=== PATIENT | male | born 1945 | race Caucasian/White ===

== ENCOUNTER 2017-11-28 05:00 | Emergency (ER) | payer MEDICARE, MEDICAID, SELFPAY ==
[2017-11-28 05:01] VITALS: BP 142/81; PULSE 71; RESP 16; TEMP 36.6; O2SAT 97; BMI 23.8
[2017-11-28] MEDS: 0.9% Normal Saline 1,000 ML 1000 ML IV (05:37)
[2017-11-28 05:44] LABS: Absolute Lymphocyte Count 1.22 X10^3/ul (0.83-4.51); Absolute Neutrophil Count 1.4 X10^3/uL (2.0-7.7); Basophil# 0.07 X10^3/uL; Basophil% 2.1 % (0-1); Eosinophil# 0.19 X10^3/uL; Eosinophils% 5.8 % (0-5); Hematocrit 39.9 % (40-54); Hemoglobin 13.3 g/dl (13.0-16.5); Lymphocyte # 1.22 X10^3/ul (4.0); Lymphocyte % 37.3 % (19-41); Mean Corp Hgb Conc 33.3 g/gl (32-36); Mean Corpuscular Hgb 32.4 pg (27.0-32.0); Mean Corpuscular Volume 97.1 fL (80-94); Mean Platelet Vol. 10.9 fl (6.2-12.0); Monocyte# 0.42 X10^3/uL; Monocyte% 12.8 % (0-10); Neutrophil # 1.36 X10^3/uL (2.7-7.7); Neutrophil % 41.7 % (47-70); Platelet Count 163 K/mm3 (150-450); RBC Distribution Width CV 13.8 % (11.6-14.6); RBC Distribution Width SD 47.6 fl (35.1-43.9); Red Blood Count 4.11 M/mm3 (4.6-6.2); White Blood Count 3.3 K/mm3 (4.4-11.0)
[2017-11-28 05:54] LABS: POSITIVE COUNT NO; POSITIVE DIFFERENTIAL NO; POSITIVE MORPHOLOGY NO
[2017-11-28 06:05] LABS: ALB/GLOB Ratio 1.2 RATIO (0.9-2.4); AST(SGOT) 29 U/L (15-37); Alanine Aminotransfer ALT/SGPT 19 U/L (16-61); Albumin, Serum 3.5 g/dL (3.2-5.0); Alkaline Phosphatase 95 U/L (45-117); Anion Gap 8 (5-15); BUN 11 mg/dL (7-18); BUN/Creat Ratio 9.2 RATIO (10-20); Calcium,Total 8.7 mg/dL (8.5-10.1); Chloride 107 mmol/L (98-107); EST Glomerular Filtration Rate 63 mL/min (>60); Est Glom Filt Rate - Afr Amer 77 mL/min (>60); Estimated Creatinine Clearance 56.46 ml/min; Glucose 94 mg/dL (74-106); Lipase 178 U/L (73-393); Potassium 4.1 mmol/L (3.5-5.1); Protein, Total 6.5 g/dL (6.4-8.2); Sodium Level 145 mmol/L (136-145)
--- NOTE | 2017-11-28 06:40 | ED.DCSUM_ITS ---
- ER Visit Summary Date of Service: 11/28/17 Chief Complaint: [] History of Present Illness: The patient is a 72 M [presents the emergency department with a couple episodes of bowel urgency and incontinence. Over the past week he has had 2 episodes where he has suddenly had to use the bathroom and could not make it and had loose watery stool. He could not sleep because he was worried about it. No abdominal pain no urinary symptoms no nausea or vomiting no appetite changes. History is limited by the patient's comprehension and stuttering speech] he denies black or bloody stool. Physical Examination: [] WN WD NAD PERRL EOMI MMM NECK supple and nontender, no masses RRR no murmur rub or gallop, no peripheral edema, symmetric radial pulses CTAB no respiratory distress ABDOMEN is soft and nontender, normal bowel sounds, no distension, no rebound or guarding SKIN is warm and dry no rashes Alert and Oriented x3, CN II-XII in tact, no motor or sensory deficits, gait normal No lymphadenopathy Test Results: [] Emergency Department Course and Treatment: [Patient was given fluids screening labs were obtained and show a mild leukopenia but no other acute process. At this time I do think is safe for discharge. He does not have a primary care doctor that he follows with. I did encourage him to get a primary care doctor. There is a [place] which may be a family preservation caseworker will attempt to contact to discuss discharge instructions with as well. Patient does live alone.] Treatment Plan: [] Disposition: [Discharge] Impression: [Bowel urgency and incontinence] This note was generated with [employer] dictation software. It may contain incorrect words, spelling, and punctuation that were not noted in review of the chart prior to signing ED Disposition - Plan for ED Patient: Chief Complaint: Diarrhea Referrals: Care Physician,No Primary [Primary Care Provider] -
--- NOTE | 2017-11-28 06:40 | ED.DEP ---
ED Disposition - Plan for ED Patient: Chief Complaint: Diarrhea Instructions: ED Diarrhea Viral Referrals: Dale Thomason DO [STAFF PHYSICIAN] - 3-5 Days
[2017-11-28 06:50] VITALS: BP 138/80; PULSE 70; RESP 16; O2SAT 97
== END 2017-11-28 07:01 | disposition home or self-care (01) ==
PROVIDERS: Emergency Provider Emergency Medicine
DX: R15.9 Full incontinence of feces (principal); R15.2 Fecal urgency; D72.819 Decreased white blood cell count, unspecified; Z85.828 Personal history of other malignant neoplasm of skin
CPT/HCPCS: 80053; 83690; 85025; 96360; 99285; J7030; A4216

== ENCOUNTER 2018-04-04 21:21 | Emergency (ER) | payer OTHER, MEDICARE, MEDICAID, SELFPAY ==
[2018-04-04 21:22] VITALS: BP 127/104; PULSE 82; RESP 18; TEMP 37.1; O2SAT 99; BMI 23.8
--- NOTE | 2018-04-04 21:42 | ED.VIS.GEN ---
History of Present Illness Chief Complaint: Lower Extremity Injury Informant: Patient Onset: Today Context: Sudden Onset - work-related injury; getting carts from parking lot, accidentally got hit in the right leg by one of the carts, which scraped him. Timing: Continuous Quality: scraped Location: right lower leg Current Severity: Mild Maximum Severity: Moderate Worsened by: walking Relieved by: rest Associated Symptoms: no other injury Narrative: States he can walk fine. Past Medical History - Allergies and Home Meds Allergies/Adverse Reactions: Allergies No Known Allergies Allergy (Verified 04/04/18 21:22) Primary Care Physician: ,Lisa [GROUP OF PHYSICIANS] - As Needed Care Physician,No Primary [Primary Care Provider] - Past Medical History: None Smoking Status: Never smoker Review of Systems All systems negative except as indicated Musculoskeletal: Reports: Extremity Pain Skin: Reports: Abrasions Neurological: Denies: Headache, Weakness, Parasthesia, Numbness Physical Exam Vital Signs/Narrative: Vital Signs Temp Pulse Resp BP Pulse Ox 04/04/18 21:22 98.8 F 82 18 127/104 H 99 Inital Vital Signs reviewed: Yes General: Well nourished, Well developed Head: Normocephalic, Atraumatic Extremities: No edema, Tenderness - mild at right kinney at abrasions. no deformity. FROM knee and ankle. Skin: Normal color, No rash, Trauma - 2 abrasions right kinney. no lacerations. Neurological: Alert, Oriented x3, Cranial nerves II-XII grossly intact, Normal Strength, Normal Sensation, Normal Gait Psychological: Normal affect Diagnostic/Tx/Re-eval - Medical Decision Making Reassured, wounds cleansed and dressed. His last tetanus was over 10 years ago so he was amenable to an update. No x-ray indicated since he scraped along his kinney, and is weightbearing without any difficulty and has no tenderness along the fibula. No joint involvement. Patient is okay to go back to work and he is okay with this plan. ED Disposition - Plan for ED Patient: Disposition: Home or Assisted Living Chief Complaint: Lower Extremity Injury Diagnosis: Abrasion, right lower leg, initial encounter, Immunization, tetanus-diphtheria Instructions: ED Abrasion Referrals: ,Care [GROUP OF PHYSICIANS] - As Needed Care Physician,No Primary [Primary Care Provider] -
[2018-04-04] MEDS: Diphth,Pertuss(Acell),Tet Vac 0.5 ML Vial IM (22:00)
--- NOTE | 2018-04-04 22:09 | ED.RN ---
per pt his boss does not want him to have a drug screen.
[2018-04-04 22:23] VITALS: BP 122/80; PULSE 78; RESP 16; O2SAT 98
--- OUTSIDE RECORDS SUMMARY | 2018-05-22 03:37 | XMS RPT_ITS ---
:1945 Author Organization OHIP Care Team Providers Name Role Phone HIMANSHU WILLIS III Attending Unavailable PEG MILLIGAN (PA-C) Attending Unavailable JEANINE LIU Referring Unavailable LIZ TRAVIS (INTELLECTUAL PROPERTY MANAGER) Attending Unavailable LORRI ROBERTS Referring Unavailable LORRI ROBERTS Referring Unavailable ALDO ELLINGTON Attending Unavailable ADY BARRETT (INTELLECTUAL PROPERTY MANAGER) Attending Unavailable GRACIA DEVRIES (RES) Attending Unavailable ADY BARRETT (INTELLECTUAL PROPERTY MANAGER) Attending Unavailable Primay Care Physicia, No Primary Care Unavailable ASHLEY MCDONALD Attending Unavailable Primay Care Physicia, No Primary Care Unavailable Brittany Ojeda Attending Unavailable PROBLEMS PROBLEMS DATE TYPE CONDITION / CODE ATTENDING STATUS SOURCE 08/02/2017 Active Unknown / PGE MILLIGAN Active [facility] UNK(Unknown) (PASaturninoC) Main [place] Repository PROCEDURES PROCEDURES No Procedure Records FoundRESULTS RESULTS EMERGENCY DEPARTMENT Observed: 04/04/2018 Status: F Source: [place] SUMMARY 11:39 PM [facility] REPOSITORY [facility] Medical Records Department [address] [place] [address] Emergency Department Summary 04/04/182 MR#: [id number] Acct: [id number] Name: JENNIFER LI Rep #: [id number] : 1945 72 From: Ashley Mcdonald MD PCP: Care Physician, No Primary Status: DEP ER History of Present Illness Chief Complaint: Lower Extremity Injury Informant: Patient Onset: Today Context: Sudden Onset - work-related injury; getting carts from parking lot, accidentally got hit in the right leg by one of the carts, which scraped him. Timing: Continuous Quality: scraped Location: right lower leg Current Severity: Mild Maximum Severity: Moderate Worsened by: walking Relieved by: rest Associated Symptoms: no other injury Narrative: States he can walk fine. Past Medical History - Allergies and Home Meds Allergies/Adverse Reactions: Allergies No Known Allergies Allergy (Verified 04/04/18 21:22) Primary Care Physician: Lisa Redding [GROUP OF PHYSICIANS] - As Needed Care Physician,No Primary [Primary Care Provider] - Past Medical History: None Smoking Status: Never smoker Review of Systems All systems negative except as indicated Musculoskeletal: Reports: Extremity Pain Skin: Reports: Abrasions Neurological: Denies: Headache, Weakness, Parasthesia, Numbness Physical Exam Vital Signs/Narrative: Vital Signs 04/04/18 21:22 98.8 F 82 18 127/104 H 99 Inital Vital Signs reviewed: Yes General: Well nourished, Well developed Head: Normocephalic, Atraumatic Extremities: No edema, Tenderness - mild at right kinney at abrasions. no deformity. FROM knee and ankle. Skin: Normal color, No rash, Trauma - 2 abrasions right kinney. no lacerations. Neurological: Alert, Oriented x3, Cranial nerves II-XII grossly intact, Normal Strength, Normal Sensation, Normal Gait Psychological: Normal affect Diagnostic/Tx/Re-eval - Medical Decision Making Reassured, wounds cleansed and dressed. His last tetanus was over 10 years ago so he was amenable to an update. No x-ray indicated since he scraped along his kinney, and is weightbearing without any difficulty and has no tenderness along the fibula. No joint involvement. Patient is okay to go back to work and he is okay with this plan. ED Disposition - Plan for ED Patient: Disposition: Home or Assisted Living Chief Complaint: Lower Extremity Injury Diagnosis: Abrasion, right lower leg, initial encounter, Immunization, tetanus-diphtheria Instructions: ED Abrasion Referrals: Corporate,Care [GROUP OF PHYSICIANS] - As Needed Care Physician,No Primary [Primary Care Provider] - What to do if you have Problems For any increased pain, shortness of breath, bleeding, nausea or vomiting, chest pain, or any unexpected problems, contact your Primary Care Provider. Call [facility] ([phone]) or report to the closest Emergency Room. Call 911 if necessary. 04/04/18 2339 <Electronically signed by Ashley Mcdonald MD> Date Ashley Mcdonald MD Cosigner Signature (If Indicated): Date CC: No Primary Care Physician PROGRESS Observed: 02/21/2018 Status: COMPLETED Source: [place] 9:37 AM [facility] REPOSITORY [facility] ID: [id number] Author: Ady Vogt (Experimental Physicist) Arnold Service: (none) Author Type: Nurse Practitioner Type: Progress Notes Filed: 02/21/2018 9:39 AM Note Text: HPI/CC: Jennifer Li is a 72 year old male who presents for Recheck (10 day follow up). Finished antibiotic. No new s/s, no pain. Denies fever, chills. ROS as above, otherwise non-contributory. Reviewed PMHx, PSHx, social Hx, medications and allergies. PHYSICAL EXAMINATION: BP 110/72 Pulse 68 Resp 16 Wt 73 kg (161 lb) BMI 24.48 kg/m? General appearance: Well appearing, alert, in no acute distress, well-hydrated, well nourished. Skin: Skin color, texture, turgor normal, no suspicious rashes or lesions Breast: Soft, nontender, No mass, skin lesions or nipple discharge, no axillary lymphadenopathy, no nipple discharge, symmetric without skin puckering ASSESSMENT/PLAN: 1. Breast pain - ICD9: 611.71, ICD10: N64.4 - monitor, negative assessment - RTO if changes Ady Barrett APRN.INTELLECTUAL PROPERTY MANAGER CNOV Observed: 02/21/2018 Status: COMPLETED Source: [place] 9:20 AM [facility] REPOSITORY Office Visit (FAMPWS) JENNIFER LI ([id number]) 1945 M Date Time Provider Department 02/21/18 9:20 AM ADY BARRETT ([place]) FAMPWS During your visit today, we recorded the following information about you: Pulse Respiration Blood pressure Weight 68/minute 16/minute 110/72 73 kg Ady Barrett APRN.CNP 02/21/2018 9:39 AM Signed HPI/CC: Jennifer Li is a 72 year old male who presents for Recheck (10 day follow up). Finished antibiotic. No new s/s, no pain. Denies fever, chills. ROS as above, otherwise non-contributory. Reviewed PMHx, PSHx, social Hx, medications and allergies. PHYSICAL EXAMINATION: BP 110/72 Pulse 68 Resp 16 Wt 73 kg (161 lb) BMI 24.48 kg/m? General appearance: Well appearing, alert, in no acute distress, well-hydrated, well nourished. Skin: Skin color, texture, turgor normal, no suspicious rashes or lesions Breast: Soft, nontender, No mass, skin lesions or nipple discharge, no axillary lymphadenopathy, no nipple discharge, symmetric without skin puckering ASSESSMENT/PLAN: 1. 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 Gastritis [K29.70] INVALID FOR* Malignant melanoma of skin of scalp and neck (H*INVALID FOR* Priority: A More... Melanoma of scalp (HCC) [C43.4] INVALID FOR* Malnutrition of moderate degree (HCC) [E44.0] INVALID FOR*07/27/2017 Encounter Status:Closed by ADY BARRETT CNP on 02/21/18 PROGRESS Observed: 02/16/2018 Status: COMPLETED Source: [place] 9:23 AM [facility] REPOSITORY O ID: [id number] Author: Aldo Ellington Service: (none) Author Type: Physician Type: Progress Notes Filed: 02/24/2018 10:38 AM Note Text: EST PATIENT CC: S/P Excision of Melanoma of scalp by Dr. Liu on 04/23/2017 HPI: Jennifer Li is a 72 year old male Patient complains of pain at night from excision site. Intermittent, stabbing lightning pains Has not lost sleep due to pain No growths or thickening near scar No pigment return in the area around scar Caregiver noticed right breast looked different than left a few days ago Previous exam did not reveal major asymmetry Tolerating antibiotics Past medical history: History of skin cancer or atypical nevi: Melanoma Family medical history: History of melanoma: none ROS: Denies fever, chills, night sweats, weight loss, joint pain. No rashes. No lymphadenopathy No weight loss No fevers PE: Gen: AANDOx3, well appearing Moyer skin type: II Skin exam performed including scalp, face including eyelids AND conjunctiva, neck, chest, abdomen, b/l arms, hands including nails and noted to be normal with the exception of: Well healed graft site of scalp without nodularity or pigment return No cervical, axillary, post-auricular, or submandibular lymphadenopathy Right shoulder posture affects hanging of breast; exam of breast while lying down revealed symmetry and no nodules or nipple retraction A/P: 72 year old patient with: 1. Scar of skin, s/p excision of melanoma - doing well - no evidence of recurrence - reassured regarding neuropathic pain post-op - discussed options to treat, including gabapentin - patient will monitor 2. Breast enlargement - no enlargement on exam, but rather shoulder posture effects visualized - no suspicious lesions on exam - reassured Aldo Ellington MD RTC 3 months CNOV Observed: 02/16/2018 Status: COMPLETED Source: [place] 9:00 AM [facility] REPOSITORY Office Visit (DERBMN) JENNIFER LI ([id number]) 1945 M Date Time Provider Department 02/16/18 9:00 AM GRACIA DEVRIES (JESSICA) DERBMN During your visit today, we recorded the following information about you: Aldo Ellington MD 02/24/2018 10:38 AM Signed EST PATIENT CC: S/P Excision of Melanoma of scalp by Dr. Liu on 04/23/2017 HPI: Richard Jen is a 72 year old male Patient complains of pain at night from excision site. Intermittent, stabbing lightning pains Has not lost sleep due to pain No growths or thickening near scar No pigment return in the area around scar Caregiver noticed right breast looked different than left a few days ago Previous exam did not reveal major asymmetry Tolerating antibiotics Past medical history: History of skin cancer or atypical nevi: Melanoma Family medical history: History of melanoma: none ROS: Denies fever, chills, night sweats, weight loss, joint pain. No rashes. No lymphadenopathy No weight loss No fevers PE: Gen: AANDOx3, well appearing Moyer skin type: II Skin exam performed including scalp, face including eyelids AND conjunctiva, neck, chest, abdomen, b/l arms, hands including nails and noted to be normal with the exception of: Well healed graft site of scalp without nodularity or pigment return No cervical, axillary, post-auricular, or submandibular lymphadenopathy Right shoulder posture affects hanging of breast; exam of breast while lying down revealed symmetry and no nodules or nipple retraction A/P: 72 year old patient with: 1. Scar of skin, s/p excision of melanoma - doing well - no evidence of recurrence - reassured regarding neuropathic pain post-op - discussed options to treat, including gabapentin - patient will monitor 2. Breast enlargement - no enlargement on exam, but rather shoulder posture effects visualized - no suspicious lesions on exam - reassured Aldo Ellington MD RTC 3 months Referring Provider: SELF [200] Allergies As of Date: 02/16/2018 (No Known Allergies) Date Reviewed: 02/16/2018 Reviewed by: David Mendoza RN - Fully Assessed Reason for Visit: Wound Check [133] Visit Diagnoses:Scar conditions and fibrosis of skin [L90.5] Personal history of malignant melanoma of skin [Z85.820] Change of skin of breast [R23.4] Prescriptions as of 02/16/2018 Sig: AMOXICILLIN 875 MG-POTASSIUM * Take 1 tablet by mouth twice * OMEPRAZOLE 20 MG CAPSULE,GOSIA* TAKE 2 CAPSULES BY MOUTH DAILY QUETIAPINE ER 300 MG TABLET,E* Take 300 mg by mouth daily at* Problem List As Of Date 02/16/2018 Noted Resolved 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 Gastritis [K29.70] INVALID FOR* Malignant melanoma of skin of scalp and neck (H*INVALID FOR* Priority: A More... Melanoma of scalp (HCC) [C43.4] INVALID FOR* Malnutrition of moderate degree (HCC) [E44.0] INVALID FOR*07/27/2017 Encounter Status:Closed by ALDO ELLINGTON MD on 02/24/18 PROGRESS Observed: 02/10/2018 Status: COMPLETED Source: [place] 9:54 AM [facility] REPOSITORY HNO ID: [id number] Author: Ady Bentley) Arnold Service: (none) Author Type: Nurse Practitioner Type: Progress Notes Filed: 02/10/2018 10:02 AM Note Text: HPI/CC: Jennifer Li is a 72 year old male who presents for Acute Visit (R breast larger than L breast; hx of cancer-melanoma). Denies fever, chills, breast erythema, TTP, nipple discharge, breast dimpling. ROS as above, otherwise non-contributory. Reviewed PMHx, PSHx, social Hx, medications and allergies. PHYSICAL EXAMINATION: BP 122/78 Pulse 64 Resp 16 Wt 71.7 kg (158 lb) BMI 24.02 kg/m? General appearance: Well appearing, alert, in no acute distress, well-hydrated, well nourished. Skin: Skin color, texture, turgor normal, no suspicious rashes or lesions Breast: Soft, nontender, No mass, skin lesions or nipple discharge, no axillary lymphadenopathy, no nipple discharge, symmetric without skin puckering ASSESSMENT/PLAN: 1. Breast swelling - ICD9: 611.72, ICD10: N63.0 - monitor - short course antibiotics if the same or worse recommend imaging. Ady Barrett APRN.CNP CNOV Observed: 02/10/2018 Status: COMPLETED Source: [place] 9:40 AM [facility] REPOSITORY Office Visit (FAMPWS) JENNIFER LI ([id number]) 1945 M Date Time Provider Department 02/10/18 9:40 AM ADY BARRETT ([place]) FAMPWS During your visit today, we recorded the following information about you: Pulse Respiration Blood pressure Weight 64/minute 16/minute 122/78 71.7 kg Ady Barrett APRN.CNP 02/10/2018 10:02 AM Signed HPI/CC: Jennifer Li is a 72 year old male who presents for Acute Visit (R breast larger than L breast; hx of cancer-melanoma). Denies fever, chills, breast erythema, TTP, nipple discharge, breast dimpling. ROS as above, otherwise non-contributory. Reviewed PMHx, PSHx, social Hx, medications and allergies. PHYSICAL EXAMINATION: BP 122/78 Pulse 64 Resp 16 Wt 71.7 kg (158 lb) BMI 24.02 kg/m? General appearance: Well appearing, alert, in no acute distress, well-hydrated, well nourished. Skin: Skin color, texture, turgor normal, no suspicious rashes or lesions Breast: Soft, nontender, No mass, skin lesions or nipple discharge, no axillary lymphadenopathy, no nipple discharge, symmetric without skin puckering ASSESSMENT/PLAN: 1. Breast swelling - ICD9: 611.72, ICD10: N63.0 - monitor - short course antibiotics if the same or worse recommend imaging. Ady Barrett APRN.INTELLECTUAL PROPERTY MANAGER Referring Provider: SELF [200] Allergies As of Date: 02/10/2018 (No Known Allergies) Date Reviewed: 02/10/2018 Reviewed by: Valentin Baez LPN - Fully Assessed Reason for Visit: Acute Visit [896] Cmt: R breast larger than L breast; hx of cancer-melanoma Primary Visit Diagnosis:Breast swelling [N63.0] Order(s):amoxicillin-clavulanic acid (AUGMENTIN) 875-125 mg per tabletTake 1 tablet by mouth twice daily for 10 days.Disp: 20 tabletRfl: 0 Prescriptions as of 02/10/2018 Sig: OMEPRAZOLE 20 MG CAPSULE,GOSIA* TAKE 2 CAPSULES BY MOUTH DAILY QUETIAPINE ER 300 MG TABLET,E* Take 300 mg by mouth daily at* AMOXICILLIN 875 MG-POTASSIUM * Take 1 tablet by mouth twice * Problem List As Of Date 02/10/2018 Noted Resolved 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 Gastritis [K29.70] INVALID FOR* Malignant melanoma of skin of scalp and neck (H*INVALID FOR* Priority: A More... Melanoma of scalp (HCC) [C43.4] INVALID FOR* Malnutrition of moderate degree (HCC) [E44.0] INVALID FOR*07/27/2017 Prescriptions ordered this encounter Disp Refills Start End AMOXICILLIN 875 MG-POTASSIUM CLAVULA* 20 t* 0 02/10/2018 02/20/2018 Route: ORAL Sig: Take 1 tablet by mouth twice daily for 10 days. Encounter Status:Closed by ADY BARRETT CNP on 02/10/18 CNPN Observed: 02/09/2018 Status: COMPLETED Source: [place] 12:00 AM [facility] REPOSITORY Telephone (DPQ) JENNIFER LI ([id number]) 1945 M Date Time Provider Department 02/09/18 ALDO ELLINGTON During your visit today, we recorded the following information about you: María Salomon 02/09/2018 4:34 PM Signed Patient called and says he is having pain in the area where he had desmoplastic melanoma, scalp, 2017, s/p excision, the wants him to be seen and for you to please call her. 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 Gastritis [K29.70] INVALID FOR* Malignant melanoma of skin of scalp and neck (H*INVALID FOR* Priority: A More... Melanoma of scalp (HCC) [C43.4] INVALID FOR* Malnutrition of moderate degree (HCC) [E44.0] INVALID FOR*07/27/2017 Encounter Status:Closed by MARÍA SALOMON on 02/09/18 PROGRESS Observed: 12/06/2017 Status: COMPLETED Source: [place] 12:26 PM [facility] REPOSITORY HNO ID: [id number] Author: Aldo Ellington Service: (none) Author Type: Physician Type: Progress Notes Filed: 12/06/2017 12:55 PM Note Text: Est patient LV: 08/17/17 CC: skin cancer screening HPI: 72 year old male here for skin cancer screening: - history of melanoma of scalp - no pain, bleeding, pigment return in site of excision / graft - no other spots of concern - has a rash on his face, scalp, zamora area - has used head and shoulders - has not used any hydrocortisone Personal History: - actinic keratosis - desmoplastic melanoma, scalp, 2017, s/p excision Family History - melanoma: no ROS: Denies weight loss, joint pain, abdominal pain, headaches, cough. - no swollen lymph nodes or glands - no fatigue, malaise, weight loss - no abdominal pain or cough - no change in bowel habits or urine character PE: Gen: alert and oriented x 3, well appearing Examination of hair of scalp and face; skin of scalp, face including eyelids and lips, neck, chest, abdomen, back, bilateral upper and lower extremities including digits and nails was significant for: - well healed full thickness skin graft scar of scalp - no lymphadenopathy - red plaques with greasy scale, scalp, forehead, cheeks in zamora area - barnes brown macules scattered over shoulders, upper back, and central chest - brown, greasy rough papule stuck-on to scalp, trunk, extremities - few pink papules and regular, symmetric brown macules scattered over trunk more than extremities - red, dome shaped papules of trunk more than extremities A/P: 72 year old male with: 1. Scar of skin, history of melanoma - no e/o recurrence - no lymphadenopathy - continue sun protection - 3 month full body skin exam 2. Lentigines 3. Seborrheic keratosis 4. Multiple benign nevi 5. Angioma - reassured regarding benign appearance on today's examination 6. Seborrheic dermatitis - continue head and shoulders - add over the counter hydrocortisone 1% for face, zamora area RTC 3 months or sooner if something concerning arises. Aldo Ellington MD CNOV Observed: 12/06/2017 Status: COMPLETED Source: [place] 11:00 AM [facility] REPOSITORY Office Visit (DERMMN) JENNIFER LI ([id number]) 1945 M Date Time Provider Department 12/06/17 11:00 AM ALDO ELLINGTON DERMKAZ During your visit today, we recorded the following information about you: Aldo Ellington MD 12/06/2017 12:55 PM Signed Est patient LV: 08/17/17 CC: skin cancer screening HPI: 72 year old male here for skin cancer screening: - history of melanoma of scalp - no pain, bleeding, pigment return in site of excision / graft - no other spots of concern - has a rash on his face, scalp, zamora area - has used head and shoulders - has not used any hydrocortisone Personal History: - actinic keratosis - desmoplastic melanoma, scalp, 2017, s/p excision Family History - melanoma: no ROS: Denies weight loss, joint pain, abdominal pain, headaches, cough. - no swollen lymph nodes or glands - no fatigue, malaise, weight loss - no abdominal pain or cough - no change in bowel habits or urine character PE: Gen: alert and oriented x 3, well appearing Examination of hair of scalp and face; skin of scalp, face including eyelids and lips, neck, chest, abdomen, back, bilateral upper and lower extremities including digits and nails was significant for: - well healed full thickness skin graft scar of scalp - no lymphadenopathy - red plaques with greasy scale, scalp, forehead, cheeks in zamora area - barnes brown macules scattered over shoulders, upper back, and central chest - brown, greasy rough papule stuck-on to scalp, trunk, extremities - few pink papules and regular, symmetric brown macules scattered over trunk more than extremities - red, dome shaped papules of trunk more than extremities A/P: 72 year old male with: 1. Scar of skin, history of melanoma - no e/o recurrence - no lymphadenopathy - continue sun protection - 3 month full body skin exam 2. Lentigines 3. Seborrheic keratosis 4. Multiple benign nevi 5. Angioma - reassured regarding benign appearance on today's examination 6. Seborrheic dermatitis - continue head and shoulders - add over the counter hydrocortisone 1% for face, zamora area RTC 3 months or sooner if something concerning arises. Aldo Ellington MD Referring Provider: SELF [200] Allergies As of Date: 12/06/2017 (No Known Allergies) Date Reviewed: 12/06/2017 Reviewed by: Aldo Ellington - Fully Assessed Reason for Visit: Full Body Skin Check [1445] Cmt: Hx- MM Primary Visit Diagnosis:Scar condition and fibrosis of skin [L90.5] Other Visit Diagnoses:Personal history of malignant melanoma of skin [Z85.820] Multiple benign nevi [D22.9] Lentigines [L81.4] Seborrheic keratoses [L82.1] Golden angioma [D18.01] Seborrheic dermatitis [L21.9] Prescriptions as of 12/06/2017 Sig: OMEPRAZOLE 20 MG CAPSULE,GOSIA* Take 2 capsules by mouth once* QUETIAPINE ER 300 MG TABLET,E* Take 300 mg by mouth daily at* Problem List As Of Date 12/06/2017 Noted Resolved 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 Gastritis [K29.70] INVALID FOR* Malignant melanoma of skin of scalp and neck (H*INVALID FOR* Priority: A More... Melanoma of scalp (HCC) [C43.4] INVALID FOR* Malnutrition of moderate degree (HCC) [E44.0] INVALID FOR*07/27/2017 Encounter Status:Closed by ALDO ELLINGTON MD on 12/06/17 DISCHARGE INSTRUCTION Observed: 11/28/2017 Status: F Source: [place] 6:41 AM [facility] REPOSITORY [facility] Medical Records Department [address] [place] [address] Discharge Instruction 11/28/1740 MR#: [id number] Acct: [id number] Name: JENNIFER LI Rep #: [id number] : 1945 72 From: Brittany Ojeda PCP: Care Physician, No Primary Status: REG ER ED Disposition - Plan for ED Patient: Chief Complaint: Diarrhea Instructions: ED Diarrhea Viral Referrals: Lorri Thomason DO [STAFF PHYSICIAN] - 3-5 Days What to do if you have Problems For any increased pain, shortness of breath, bleeding, nausea or vomiting, chest pain, or any unexpected problems, contact your Primary Care Provider. Call [facility] ([phone]) or report to the closest Emergency Room. Call 911 if necessary. 11/28/17 0641 <Electronically signed by Brittany Ojeda > Date Brittany Ojeda Cosigner Signature (If Indicated): Date CC: No Primary Care Physician EMERGENCY DEPARTMENT Observed: 11/28/2017 Status: F Source: [place] SUMMARY 6:40 AM [facility] REPOSITORY [facility] Medical Records Department [address] [place] [address] Emergency Department Summary 11/28/17 0638 MR#: [id number] Acct: [id number] Name: JENNIFER LI Rep #: [id number] : 1945 72 From: Brittany Ojeda PCP: Lisa Physician, No Primary Status: REG ER - ER Visit Summary Date of Service: 11/28/17 Chief Complaint: [] History of Present Illness: The patient is a 72 M [presents the emergency department with a couple episodes of bowel urgency and incontinence. Over the past week he has had 2 episodes where he has suddenly had to use the bathroom and could not make it and had loose watery stool. He could not sleep because he was worried about it. No abdominal pain no urinary symptoms no nausea or vomiting no appetite changes. History is limited by the patient's comprehension and stuttering speech] he denies black or bloody stool. Physical Examination: [] WN WD NAD PERRL EOMI MMM NECK supple and nontender, no masses RRR no murmur rub or gallop, no peripheral edema, symmetric radial pulses CTAB no respiratory distress ABDOMEN is soft and nontender, normal bowel sounds, no distension, no rebound or guarding SKIN is warm and dry no rashes Alert and Oriented x3, CN II-XII in tact, no motor or sensory deficits, gait normal No lymphadenopathy Test Results: [] Emergency Department Course and Treatment: [Patient was given fluids screening labs were obtained and show a mild leukopenia but no other acute process. At this time I do think is safe for discharge. He does not have a primary care doctor that he follows with. I did encourage him to get a primary care doctor. There is a Andrae which may be a ed case manager will attempt to contact to discuss discharge instructions with as well. Patient does live alone.] Treatment Plan: [] Disposition: [Discharge] Impression: [Bowel urgency and incontinence] This note was generated with Animating Touch dictation software. It may contain incorrect words, spelling, and punctuation that were not noted in review of the chart prior to signing ED Disposition - Plan for ED Patient: Chief Complaint: Diarrhea Referrals: Care Physician,No Primary [Primary Care Provider] - What to do if you have Problems For any increased pain, shortness of breath, bleeding, nausea or vomiting, chest pain, or any unexpected problems, contact your Primary Care Provider. Call [facility] ([phone]) or report to the closest Emergency Room. Call 911 if necessary. 11/28/17 0640 <Electronically signed by Brittany Ojeda > Date Brittany Ojeda Cosigner Signature (If Indicated): Date CC: No Primary Care Physician CBC W/DIFF, AUTOMATED Collected: 11/28/2017 Status: F Source: [place] 5:36 AM [facility] REPOSITORY TYPE CODE TESTS RESULT OUT OF RANGE REFERENCE UNITS LAB L100.1000 4.4-11.0 K/mm3 Low WBC 3.3 LAB L100.1200 4.6-6.2 M/mm3 Low RBC 4.11 LAB L100.1300 13.0-16.5 g/dl Normal HGB 13.3 LAB L100.1400 40-54 % Low HCT 39.9 LAB L100.1500 80-94 fL High MCV 97.1 LAB L100.1600 27.0-32.0 pg High MCH 32.4 LAB L100.1700 32-36 g/gl Normal MCHC 33.3 LAB L100.1810 11.6-14.6 % Normal RDW CV 13.8 LAB L100.1820 35.1-43.9 fl High RDW SD 47.6 LAB L100.1900 150-450 K/mm3 Normal PLT 163 LAB L100.2000 6.2-12.0 fl Normal MPV 10.9 LAB L100.2100 47-70 % Low NEUT% 41.7 LAB L100.2200 19-41 % Normal LY% 37.3 LAB L100.2300 0-10 % High MONO% 12.8 LAB L100.2400 0-5 % High EO% 5.8 LAB L100.2500 0-1 % High BASO% 2.1 LAB L100.2550 0.0-0.9 % Normal IM GRAN % 0.300 Result Comment: IG% - Immature Granulocytes (promyelocytes, myelocytes and metamyelocytes) > 1% indicates that a LEFT SHIFT is Present. LAB L100.2620 2.0-7.7 X10 3/uL Low Absolute Neut 1.4 LAB L100.2720 0.83-4.51 X10 3/ul Normal Absolute Lymph 1.22 Performed By: #### L100.0100 #### [facility] [address] [place], [address] COMPREHENSIVE METABOLIC Collected: 11/28/2017 Status: F Source: [place] [facility] 5:36 AM [facility] REPOSITORY TYPE CODE TESTS RESULT OUT OF RANGE REFERENCE UNITS LAB L501.0100 74-106 mg/dL Normal GLU 94 Result Comment: Please note revised GLUCOSE reference range effective 2017. LAB L501.1000 7-18 mg/dL Normal BUN 11 LAB L501.1100 0.70-1.30 mg/dL Normal CREAT,SERUM 1.20 Result Comment: The validity of the calculated GFR AND GFRAA in patients over 70 years has not been determined. Clinical correlation is essential. LAB L501.1110 >60 mL/min Normal EST GFR 63 Result Comment: Non- GFR Calc LAB L501.1115 >60 mL/min Normal EST GFR - AA 77 Result Comment: GFR Calc LAB L501.1255 ml/min Normal Estimated CRCL 56.46 LAB L501.1300 10-20 RATIO Low BUN/CRE 9.2 LAB L501.1500 6.4-8. g/dL Normal 2 T PROT 6.5 LAB L501.1800 3.2-5. g/dL Normal 0 ALB 3.5 LAB L501.1950 2.2-4. g/dL Normal 2 GLOB 3.0 LAB L501.2000 0.9-2. RATIO Normal 4 A/G 1.2 LAB L501.2200 8.5-10 mg/dL Normal .1 CA 8.7 LAB L501.4100 15-37 U/L Normal AST 29 LAB L501.4305 45-117 U/L Normal ALK P 95 LAB L501.4405 16-61 U/L Normal ALT 19 LAB L501.4600 0.20-1 mg/dL Normal .00 T BILI 0.50 LAB L501.5300 136-14 mmol/L Normal 5 NA 145 LAB L501.5600 3.5-5. mmol/L Normal 1 K 4.1 LAB L501.5900 98-107 mmol/L Normal CL 107 LAB L501.6100 21.0-3 mmol/L Normal 2.0 CO2 30.0 LAB L501.6200 5-15 Normal GAP 8 Performed By: #### L500.4050, L501.2450 #### [facility] [address] [place], [address] LIPASE Collected: 11/28/2017 Status: F Source: [place] 5:36 AM [facility] REPOSITORY TYPE CODE TESTS RESULT OUT OF RANGE REFERENCE UNITS LAB L501.0 73-393 U/L Normal LIPASE 178 Performed By: #### L500.4050, L501.2450 #### [facility] [address] [place], [address] PROGRESS Observed: 09/03/2017 Status: COMPLETED Source: [place] 1:50 PM [facility] [place] REPOSITORY HNO ID: [id number] Author: Ady Spence RN Service: (none) Author Type: (none) Type: Progress Notes Filed: 09/03/2017 2:44 PM Note Text: PROCEDURE FOLLOW UP PATIENT ID CONFIRMED: YES PATIENT ID VERIFIED BY: Ady Irvin RN PAIN ASSESSMENT: Is the patient having any pain? No 0 on a scale of 0 to 10 CLINICIAN: Ady Irvin RN PATIENT RETURNS FOR: suture removal PHOTO TAKEN: No PATIENT IS S/P: Punch biopsy FOLLOW UP DIAGNOSIS: suture removal Pathology results: Patient previously notified. DATE OF PROCEDURE: 08/17/17 SITE LOCATION: Right upper back WOUND MANAGEMENT: Punch biopsy site with primary closure: Wound is well approximated without signs of infection; appears to be healing well. Patient denies any problems or concerns. Sutures removed easily, and patient tolerated well. FOLLOW UP: JOSE Irvin RN CNOV Observed: 09/03/2017 Status: COMPLETED Source: [place] 1:30 PM [facility] Office Visit (DERN) JENNIFER LI ([id number]) 1945 M Date Time Provider Department 09/03/17 1:30 PM [facility] During your visit today, we recorded the following information about you: Ady Spence RN 09/03/2017 2:44 PM Signed PROCEDURE FOLLOW UP PATIENT ID CONFIRMED: YES PATIENT ID VERIFIED BY: Ady Irvin RN PAIN ASSESSMENT: Is the patient having any pain? No 0 on a scale of 0 to 10 CLINICIAN: Ady Irvin RN PATIENT RETURNS FOR: suture removal PHOTO TAKEN: No PATIENT IS S/P: Punch biopsy FOLLOW UP DIAGNOSIS: suture removal Pathology results: Patient previously notified. DATE OF PROCEDURE: 08/17/17 SITE LOCATION: Right upper back WOUND MANAGEMENT: Punch biopsy site with primary closure: Wound is well approximated without signs of infection; appears to be healing well. Patient denies any problems or concerns. Sutures removed easily, and patient tolerated well. 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 Gastritis [K29.70] INVALID FOR* Malignant melanoma of skin of scalp and neck (H*INVALID FOR* Priority: A More... Melanoma of scalp (HCC) [C43.4] INVALID FOR* Malnutrition of moderate degree (HCC) [E44.0] INVALID FOR*07/27/2017 Encounter Status:Closed by ADY SPENCE RN on 09/03/17 SURGICAL PATHOLOGY Observed: 08/17/2017 Status: F Source: [place] 12:03 PM [facility] REPOSITORY Specimen originated from [facility] Specimen #: [id number] Submitting Physician: LIZ TRAVIS, DIXON FINAL DIAGNOSIS A. Skin, right upper back, punch biopsy - Compound nevus. SEVERIANO/MS/ene 08/18/2017 Bartolo Altamirano M.D. (Electronic Signature) SPECIMEN SUBMITTED A: SKIN, RIGHT UPPER BACK, PUNCH BIOPSY CLINICAL DATA R/O Atypical nevus GROSS DESCRIPTION A. Received in formalin is a cylindrical segment of skin and subcutaneous tissue measuring 0.6 x 0.6 x 0.7 cm. On the surface there is a 0.5 cm barnes-brown mottled area. The specimen is bisected. Totally submitted in formalin in one cassette. Gross examination performed at [facility], [address] [place] [address] 08/18/2017 12:10:54 AM Date of Report: 08/18/2017 Date of Procedure: 08/17/2017 Date of Receipt: 08/17/2017 Submitted by: LIZ TRAVIS CNP Location: A61 Diagnostic interpretation performed at [facility], [address] [place] [address]. PROGRESS Observed: 08/17/2017 Status: COMPLETED Source: [place] 11:42 AM [facility] RE[facility] HNO ID: [id number] Author: Liz (Dixon) Angy Service: (none) Author Type: Nurse Practitioner Type: Progress Notes Filed: 08/17/2017 12:43 PM Note Text: SKIN EXAM NEW MELISSA: 03/16/2017 with Guillermo Menjivar MD (Fellow) CC: This patient is a 71 year old male here with social worker assistant for Skin check. HPI: -Presents today for a full skin exam. Here with social worker assistant. -Patient offerns no skin concerns today. 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 Liu). -History of Actinic keratoses: No -History of Dysplastic Nevus: No -History of increased sun exposure: No -History of blistering sunburns: No -History of tanning bed use: No -Family history of skin cancer: No SOC: Social History Marital status: Single Spouse name: Years of education: Number of children: Social History Main Topics Smoking status: Never Smoker Smokeless status: Never Used Alcohol use: No Drug use: No Social History Narrative Lives alone MEDS: Current outpatient prescriptions: Current Outpatient Prescriptions on File Prior to Visit: omeprazole (PRILOSEC) 20 mg capsule Take 2 capsules by mouth once daily. QUEtiapine XR (SEROQUEL XR) 300 mg 24 hr tablet Take 300 mg by mouth daily at bedtime. No current facility-administered medications on file prior to visit. ALLERGY: ALLERGIES No Known Allergies REVIEW OF SYSTEMS: Patient feels well and denies any recent fevers, chills, or nightsweats. Skin: See HPI PHYSICAL EXAM: The patient is a pleasant male in no distress. Patient is healthy, well developed, well nourished and in otherwise good health. he is alert and oriented x 3. A skin exam was done of the face including the ears, eyelids/ lips, scalp, hair, neck, chest, back, abdomen, bilateral upper extremities, hands including fingernails, bilateral lower extremities, feet including toenails and buttocks. Moyer Skin Type: II Left anterior scalp well healed graft site, small healing biopsy site along anterior aspect, no evidence of recurrence, no s/s of infection Right chin healing biopsy site No cervical, axillary or inguinal lymphadenopathy A) right upper back dark brown irregular macule 0.5 x 0.4 cm Few light barnes macules noted in sun distribution on forearms Very few regular and symmetric hyperpigmented macules throughout, unremarkable under dermoscopy Small golden red papules throughout A/P: 1) R/O Atypical Nevus - Recommend punch biopsy. Punch biopsy to establish and confirm diagnosis. Photo taken: Yes Risks, benefits, alternatives and personnel required for punch biopsy reviewed with patient. Pt and practitioner agree as to site(s) to be biopsied. Pt verbalizes understanding and wishes to proceed. Site(s) prepped with alcohol and anesthetized with 1% Lidocaine HCl with Epinephrine 1:100,000 6 mm punch biopsy performed. Hemostasis obtained with 3 interrupted sutures. 1 specimen(s) from right upper back sent for pathology to r/o Atypical Nevus Patient tolerated procedure well and without complication. EBL: scant. Dressing applied. Written and verbal wound care instructions provided to patient, understanding verbalized. OK to call with results. Follow-up for suture removal in 12-14 days. OK to call with results. 2) Scar AND History of Melanoma - Recommend full skin exam Q 3 months for 2 years, Q 6 months for 5 years then annually for the rest of his life.. Well healed Excision site. No evidence of recurrence. Recommend yearly exams with appropriate specialties for melanoma surveillance. 3) Solar lentigines, Clinically benign appearing nevi, Angiomas - Recommend high SPF sunscreens and reapplication. Reassurance on benign nature of lesions. Recommend monthly self-examinations. Sunscreen (SPF 30 or higher) and sun protection reviewed. Should any moles change in size, shape or color, bleed or become tender, the patient will contact the office for evaluation sooner than their interval appointment. Patient verbalizes understanding and agrees with treatment plan. Follow up in 3 months and PRN Liz Travis CNP Attending: Dr. Atiya KRAMER Observed: 08/17/2017 Status: COMPLETED Source: [place] 11:25 AM [facility] REPOSITORY Office Visit (DERBMN) JENNIFER LI ([id number]) 1945 M Date Time Provider Department 08/17/17 11:25 AM LIZ TRAVIS (DIXON) [facility] During your visit today, we recorded the following information about you: Liz Travis APRN.CNP 08/17/2017 12:43 PM Signed SKIN EXAM NEW MELISSA: 03/16/2017 with Guillermo Menjivar MD (Fellow) CC: This patient is a 71 year old male here with social worker assistant for Skin check. HPI: -Presents today for a full skin exam. Here with social worker assistant. -Patient offerns no skin concerns today. 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 Liu). -History of Actinic keratoses: No -History of Dysplastic Nevus: No -History of increased sun exposure: No -History of blistering sunburns: No -History of tanning bed use: No -Family history of skin cancer: No SOC: Social History Marital status: Single Spouse name: Years of education: Number of children: Social History Main Topics Smoking status: Never Smoker Smokeless status: Never Used Alcohol use: No Drug use: No Social History Narrative Lives alone MEDS: Current outpatient prescriptions: Current Outpatient Prescriptions on File Prior to Visit: omeprazole (PRILOSEC) 20 mg capsule Take 2 capsules by mouth once daily. QUEtiapine XR (SEROQUEL XR) 300 mg 24 hr tablet Take 300 mg by mouth daily at bedtime. No current facility-administered medications on file prior to visit. ALLERGY: ALLERGIES No Known Allergies REVIEW OF SYSTEMS: Patient feels well and denies any recent fevers, chills, or nightsweats. Skin: See HPI PHYSICAL EXAM: The patient is a pleasant male in no distress. Patient is healthy, well developed, well nourished and in otherwise good health. he is alert and oriented x 3. A skin exam was done of the face including the ears, eyelids/ lips, scalp, hair, neck, chest, back, abdomen, bilateral upper extremities, hands including fingernails, bilateral lower extremities, feet including toenails and buttocks. Moyer Skin Type: II Left anterior scalp well healed graft site, small healing biopsy site along anterior aspect, no evidence of recurrence, no s/s of infection Right chin healing biopsy site No cervical, axillary or inguinal lymphadenopathy A) right upper back dark brown irregular macule 0.5 x 0.4 cm Few light barnes macules noted in sun distribution on forearms Very few regular and symmetric hyperpigmented macules throughout, unremarkable under dermoscopy Small golden red papules throughout A/P: 1) R/O Atypical Nevus - Recommend punch biopsy. Punch biopsy to establish and confirm diagnosis. Photo taken: Yes Risks, benefits, alternatives and personnel required for punch biopsy reviewed with patient. Pt and practitioner agree as to site(s) to be biopsied. Pt verbalizes understanding and wishes to proceed. Site(s) prepped with alcohol and anesthetized with 1% Lidocaine HCl with Epinephrine 1:100,000 6 mm punch biopsy performed. Hemostasis obtained with 3 interrupted sutures. 1 specimen(s) from right upper back sent for pathology to r/o Atypical Nevus Patient tolerated procedure well and without complication. EBL: scant. Dressing applied. Written and verbal wound care instructions provided to patient, understanding verbalized. OK to call with results. Follow-up for suture removal in 12-14 days. OK to call with results. 2) Scar ANDamp; History of Melanoma - Recommend full skin exam Q 3 months for 2 years, Q 6 months for 5 years then annually for the rest of his life.. Well healed Excision site. No evidence of recurrence. Recommend yearly exams with appropriate specialties for melanoma surveillance. 3) Solar lentigines, Clinically benign appearing nevi, Angiomas - Recommend high SPF sunscreens and reapplication. Reassurance on benign nature of lesions. Recommend monthly self-examinations. Sunscreen (SPF 30 or higher) and sun protection reviewed. Should any moles change in size, shape or color, bleed or become tender, the patient will contact the office for evaluation sooner than their interval appointment. Patient verbalizes understanding and agrees with treatment plan. Follow up in 3 months and PRN Liz Travis CNP Attending: Dr. Atiya Joseph Ma 08/17/2017 11:47 AM Addendum -Preventing harmful UV exposure is loredo to reducing your chances of skin cancer. Recommend avoiding unecessary sun exposure, seeking shade where possible, wearing protective clothing and applying sunscreen regularly. ? -Recommend daily use of Broad Spectrum sunscreen at least SPF 30 or higher. Sunscreen should be reapplied every 2 hours you are out in the sun. It should be reapplied every hour if you are sweating or swimming. This will help protect against sunburn, skin cancer and premature aging. ? -Monthly self-examinations are recommended. Should any moles change in size, shape or color, bleed or become tender, or if you see a spot that looks suspicious, please contact the office for evaluation sooner than your interval appointment. ? -Follow up in 1 year or sooner with concerns CARE OF BIOPSY SITE 1. Wash your hands with soap and water. 2. Cleanse the biopsy site with regular soap. 3. Thoroughly dry the area and apply a small amount of Vaseline or Aquaphor to keep the area greasy at all times (this prevents a scab from forming). 4. PLEASE DO NOT use Neosporin, triple antibiotic or similar ointments. 5. Place a small dressing or band-aid over the wound until the wound is healed. 6. Repeat daily for one week. Stitches are to be removed in 12-14 days (if applicable) If you have any questions or concerns, please contact the office at [phone]. Referring Provider: LORRI ROBERTS [[id number]] Allergies As of Date: 08/17/2017 (No Known Allergies) Date Reviewed: 08/17/2017 Reviewed by: Liz LinnJamaica Plain Va Medical CenterKaran Travis - Fully Assessed Reason for Visit: Derm Problem [33] Cmt: skin check Primary Visit Diagnosis:Neoplasm of uncertain behavior of skin [D48.5] Other Visit Diagnoses:Angioma of skin [D18.01] Benign nevus [D22.9] Lentigines [L81.4] Personal history of malignant melanoma of skin [Z85.820] Scar conditions and fibrosis of skin [L90.5] Order(s):SURGICAL PATHOLOGY [8884429] Order #: [id number] Prescriptions as of 08/17/2017 Sig: OMEPRAZOLE 20 MG CAPSULE,GOSIA* Take 2 capsules by mouth once* QUETIAPINE ER 300 MG TABLET,E* Take 300 mg by mouth daily at* Problem List As Of Date 08/17/2017 Noted Resolved 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 Gastritis [K29.70] INVALID FOR* Malignant melanoma of skin of scalp and neck (H*INVALID FOR* Priority: A More... Melanoma of scalp (HCC) [C43.4] INVALID FOR* Malnutrition of moderate degree (HCC) [E44.0] INVALID FOR*07/27/2017 Other instructions from your clinician: -Preventing harmful UV exposure is loredo to reducing your chances of skin cancer. Recommend avoiding unecessary sun exposure, seeking shade where possible, wearing protective clothing and applying sunscreen regularly. ? -Recommend daily use of Broad Spectrum sunscreen at least SPF 30 or higher. Sunscreen should be reapplied every 2 hours you are out in the sun. It should be reapplied every hour if you are sweating or swimming. This will help protect against sunburn, skin cancer and premature aging. ? -Monthly self-examinations are recommended. Should any moles change in size, shape or color, bleed or become tender, or if you see a spot that looks suspicious, please contact the office for evaluation sooner than your interval appointment. ? -Follow up in 1 year or sooner with concerns CARE OF BIOPSY SITE 1. Wash your hands with soap and water. 2. Cleanse the biopsy site with regular soap. 3. Thoroughly dry the area and apply a small amount of Vaseline or Aquaphor to keep the area greasy at all times (this prevents a scab from forming). 4. PLEASE DO NOT use Neosporin, triple antibiotic or similar ointments. 5. Place a small dressing or band-aid over the wound until the wound is healed. 6. Repeat daily for one week. Stitches are to be removed in 12-14 days (if applicable) If you have any questions or concerns, please contact the office at [phone]. Disposition: Return in about 3 months (around 11/16/2017) for 12-14 day suture removal, 3 month full skin exam.. Follow-up and Disposition History Recorded Encounter Status:Closed by LIZ TRAVIS CNP on 08/17/17 SURGICAL PATHOLOGY Observed: 08/02/2017 Status: F Source: [place] 1:19 PM [facility] Specimen originated from [facility] Specimen #: [id number] Submitting Physician: PEG MILLIGAN PA-C FINAL DIAGNOSIS A. Skin, left scalp skin graft, punch biopsy - Dermal granulomatous inflammation and hemosiderin, consistent with prior procedure. - Negative for malignancy. B. Skin, right chin, shave biopsy - Neurofibroma, traumatized. MARCE//luana 08/03/2017 Magdalena Krueger M.D., Ph.D. (Electronic Signature) SPECIMEN SUBMITTED A: SKIN, LEFT SCALP SKIN GRAFT, PUNCH BIOPSY B: SKIN, RIGHT CHIN, SHAVE BIOPSY CLINICAL DATA r/o recurrent melanoma v hematoma GROSS DESCRIPTION A. Received in formalin is a cylindrical segment of skin and subcutaneous tissue measuring 0.2 x 0.2 x 0.2 cm. On the surface there is a 0.1 cm brown flat area. The specimen is not sectioned. Totally submitted in formalin in one cassette. B. Received in formalin are multiple segments of barnes brown crusted skin aggregating to 1.5 x 0.5 x 0.2 cm. Specimen is sectioned. Totally submitted in formalin in one cassette. Gross examination performed at [facility], [address] [place] [address] MM 08/03/2017 2:17:55 AM Date of Report: 08/03/2017 Date of Procedure: 08/02/2017 Date of Receipt: 08/02/2017 Submitted by: PEG MILLIGAN PA-C Location: [facility] Diagnostic interpretation performed at [place] [address]. PROGRESS Observed: 08/02/2017 Status: COMPLETED Source: [place] 1:18 PM [facility] REPOSITORY HNO ID: [id number] Author: Peg Milligan Service: (none) Author Type: Physician Legal Aide Type: Progress Notes Filed: 08/03/2017 2:08 PM Note Text: Plastic Surgery Follow-up CHIEF COMPLAINT: Melanoma of scalp HPI: This is a 71 year old male with PMH of melanoma of the left scalp who is s/p WLE, STSG on 04/23/17. Pathology favorable and previously reviewed with patient. See below and full report in Epic. He presents today for routine follow-up evaluation. He denies complaints or concerns. He recovered well from surgery without problem. He does admit to a new skin lesion at his right chin, which he first noticed approximately 2-3 days ago. Meds/Allergies Reviewed No other changes to medical history from previous exam on 05/17/17 EXAM: General: well appearing, well hydrated, well nourished BP 101/64 Pulse 69 Temp 36.3 ?C (97.3 ?F) (Oral) Resp 20 SpO2 99% VSS, NAD Skin: FP II - left scalp STSG 100% taken - no openings or signs of infection - 1-2mm hyperpigmented subdermal lesion at the skin graft border - Right chin with 6mm raised skin lesion with heme crusting Nodes: no palpable neck lymphadenopathy, B/L Chest: regular, non-labored breathing Ext: grossly motor AND sensory intact x4 Neuro: AANDOx3 LABS: Surgical Pathology 04/23/17 FINAL DIAGNOSIS A. Skin, scalp, excision - Residual desmoplastic melanoma, completely excised (see synoptic report). 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, STSG on 04/23/17 Pathology favorable Recovered well from surgery presents today for routine evaluation 2 new changing skin lesions at right chin and left scalp at STSG border R/B/A of proceeding with biopsy discussed with patient, including risks of hematoma, infection, etc Patient agrees to proceed and consent obtained Patient positioned, draped and cleaned Patient anesthetized with 1cc lidocaine 1% with epinephrine 1:100,000 to right chin and 0.5cc lidocaine 1% with epinephrine 1:100,000 to left scalp Patient prepped with iodine 2mm punch biopsy performed at left scalp lesion Specimen sent for pathology in formalin Hemostasis achieved with silver nitrate Shave biopsy with dermablade at the right chin lesion Specimen sent for pathology in formalin Hemostasis achieved with silver nitrate Patient cleaned and appropriate bandage applied Will follow-up with patient pending pathology results Pathology results to dictate next step in care Patient previously deferred any multi-disciplinary care, including medical oncology consultation and [place] testing Stressed the important of regular Q3 month derm follow-up for FBSE Patient to contact office with questions/concerns/changes Peg Milligan PA-C August 02, 2017 12:18 PM [place]ER[place] Observed: 08/02/2017 Status: COMPLETED Source: [place] 11:00 AM [facility] REPOSITORY Visit (SP) Office ([facility]) JENJENNIFER ([id number]) 1945 M U[place] Date Time Provider Department 08/02/17 11:00 AM PEG MILLIGAN PA-C During your visit today, we recorded the following information about you: Temperature Pulse Respiration Blood pressure 97.3 degrees 69/minute 20/minute 101/64 Peg Milligan PA-C 08/03/2017 2:08 PM Signed Plastic Surgery Follow-up CHIEF COMPLAINT: Melanoma of scalp HPI: This is a 71 year old male with PMH of melanoma of the left scalp who is s/p WLE, STSG on 04/23/17. Pathology favorable and previously reviewed with patient. See below and full report in Epic. He presents today for routine follow-up evaluation. He denies complaints or concerns. He recovered well from surgery without problem. He does admit to a new skin lesion at his right chin, which he first noticed approximately 2-3 days ago. Meds/Allergies Reviewed No other changes to medical history from previous exam on 05/17/17 EXAM: General: well appearing, well hydrated, well nourished BP 101/64 Pulse 69 Temp 36.3 ?C (97.3 ?F) (Oral) Resp 20 SpO2 99% VSS, NAD Skin: FP II - left scalp STSG 100% taken - no openings or signs of infection - 1-2mm hyperpigmented subdermal lesion at the skin graft border - Right chin with 6mm raised skin lesion with heme crusting Nodes: no palpable neck lymphadenopathy, B/L Chest: regular, non-labored breathing Ext: grossly motor ANDamp; sensory intact x4 Neuro: AANDamp;Ox3 LABS: Surgical Pathology 04/23/17 FINAL DIAGNOSIS A. Skin, scalp, excision - Residual desmoplastic melanoma, completely excised (see synoptic report). 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, STSG on 04/23/17 Pathology favorable Recovered well from surgery presents today for routine evaluation 2 new changing skin lesions at right chin and left scalp at STSG border R/B/A of proceeding with biopsy discussed with patient, including risks of hematoma, infection, etc Patient agrees to proceed and consent obtained Patient positioned, draped and cleaned Patient anesthetized with 1cc lidocaine 1% with epinephrine 1:100,000 to right chin and 0.5cc lidocaine 1% with epinephrine 1:100,000 to left scalp Patient prepped with iodine 2mm punch biopsy performed at left scalp lesion Specimen sent for pathology in formalin Hemostasis achieved with silver nitrate Shave biopsy with dermablade at the right chin lesion Specimen sent for pathology in formalin Hemostasis achieved with silver nitrate Patient cleaned and appropriate bandage applied Will follow-up with patient pending pathology results Pathology results to dictate next step in care Patient previously deferred any multi-disciplinary care, including medical oncology consultation and [place] testing Stressed the important of regular Q3 month derm follow-up for FBSE Patient to contact office with questions/concerns/changes Peg Milligan PA-C August 02, 2017 12:18 PM Referring Provider: JEANINE LIU [[id number]] Allergies As of Date: 08/02/2017 (No Known Allergies) Date Reviewed: 08/02/2017 Reviewed by: Shirley Mccartney (Rahat) RAHAT Nguyen - Fully Assessed Reason for Visit: Post Op [174] Primary Visit Diagnosis:Neoplasm of uncertain behavior [D48.9] Other Visit Diagnoses:Personal history of malignant melanoma of skin [Z85.820] Malignant melanoma of skin of scalp and neck (HCC) [C43.4] Order(s):[] lidocaine 1%-EPINEPHrine 1:100,000 5 mL injectionDisp: Rfl: SURGICAL PATHOLOGY [1737835] Order #: [id number] 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 Gastritis [K29.70] INVALID FOR* Malignant melanoma of skin of scalp and neck (H*INVALID FOR* Priority: A More... Melanoma of scalp (HCC) [C43.4] INVALID FOR* Malnutrition of moderate degree (HCC) [E44.0] INVALID FOR*07/27/2017 Encounter Status:Closed by PEG MILLIGAN PA-C on 08/03/17 PROGRESS Observed: 07/27/2017 Status: COMPLETED Source: [place] 3:33 PM [facility] REPOSITORY HNO ID: [id number] Author: Himanshu Willis III Service: (none) Author Type: Physician Type: Progress Notes Filed: 07/27/2017 3:45 PM Note Text: SUBJECTIVE: This is a 71 year old male that is here today for pt with stable schizophrenia and hx of malnutrition now living independently. He fell on side walk on 07/23 causing bruising L ring and little fingers, and abrasions R knee. Doing well., Not taking pain meds. Eating fairly well and stable wt over past yr. 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 No current facility-administered medications on file prior to visit. FAMILY HISTORY Problem Relation Age of Onset - Cancer Mother - Other [OTHER] Father suicide Social History Substance Use Topics - Smoking status: Never Smoker - Smokeless tobacco: Never Used - Alcohol use No BP 120/71 Pulse 64 Resp 16 Wt 68 kg (150 lb) BMI 22.81 kg/m2 . OBJECTIVE: APPEARANCE Well appearing, alert, in no acute distress, well-hydrated, well nourished., repeats questions with poor short term memory. EXTREMITIES superficial abrasions R ant knee with mild tenderness. No swelling of R knee. Painless flex/ext R knee. No tenderness of joint line.. Eccymoses of L ring and little fingers but painless flexion/ext of fingers ASSESSMENT: schizophrenia--stable malnutrition--improved contusions of R knee and L fingers PLAN: Progress activity as able but be careful not to fall same medications delete malnutrition as current dx YOUNG Moyer MD, III MD CNOV Observed: 07/27/2017 Status: COMPLETED Source: [place] 2:40 PM [facility] REPOSITORY Office Visit ([facility]) JENNIFER LI ([id number]) 1945 M Date Time Provider Department 07/27/17 2:40 PM HIMANSHU WILLIS III During your visit today, we recorded the following information about you: Pulse Respiration Blood pressure Weight 64/minute 16/minute 120/71 68 kg Himanshu Willis III MD 07/27/2017 3:45 PM Signed SUBJECTIVE: This is a 71 year old male that is here today for pt with stable schizophrenia and hx of malnutrition now living independently. He fell on side walk on 07/23 causing bruising L ring and little fingers, and abrasions R knee. Doing well., Not taking pain meds. Eating fairly well and stable wt over past yr. 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 No current facility-administered medications on file prior to visit. FAMILY HISTORY Problem Relation Age of Onset - Cancer Mother - Other [OTHER] Father suicide Social History Substance Use Topics - Smoking status: Never Smoker - Smokeless tobacco: Never Used - Alcohol use No BP 120/71 Pulse 64 Resp 16 Wt 68 kg (150 lb) BMI 22.81 kg/m2 . OBJECTIVE: APPEARANCE Well appearing, alert, in no acute distress, well- hydrated, well nourished., repeats questions with poor short term memory. EXTREMITIES superficial abrasions R ant knee with mild tenderness. No swelling of R knee. Painless flex/ext R knee. No tenderness of joint line.. Eccymoses of L ring and little fingers but painless flexion/ext of fingers ASSESSMENT: schizophrenia--stable malnutrition--improved contusions of R knee and L fingers PLAN: Progress activity as able but be careful not to fall same medications delete malnutrition as current dx YOUNG Moyer MD, III MD Frank A Cebul, III MD 07/27/2017 3:37 PM Signed PLAN: Progress activity as able but be careful not to fall same medications Himanshu Willis III MD Referring Provider: SELF [[id number]] Allergies As of Date: 07/27/2017 (No Known Allergies) Date Reviewed: 07/27/2017 Reviewed by: Angie ([facility]) CHARLES Fox - Fully Assessed Reason for Visit: Fall [218] Cmt: Fell Wednesday, tripped on sidewalk, injured left hand ring finger AND right knee Reason For Visit History Recorded Primary Visit Diagnosis:Contusion of right knee, initial encounter [S80.01XA] Other Visit Diagnoses:Contusion of left ring finger without damage to nail, initial encounter [S60.042A] Paranoid schizophrenia, chronic condition (HCC) [F20.0] Malnutrition of moderate degree (HCC) [E44.0] Prescriptions as of 07/27/2017 Sig: OMEPRAZOLE 20 MG CAPSULE,GOSIA* TAKE 2 CAPSULES BY MOUTH DAILY QUETIAPINE ER 300 MG TABLET,E* Take 300 mg by mouth daily at* Problem List As Of Date 07/27/2017 Noted Resolved 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 Gastritis [K29.70] INVALID FOR* Malignant melanoma of skin of scalp and neck (H*INVALID FOR* Priority: A More... Melanoma of scalp (HCC) [C43.4] INVALID FOR* Malnutrition of moderate degree (HCC) [E44.0] INVALID FOR*07/27/2017 Other instructions from your clinician: PLAN: Progress activity as able but be careful not to fall same medications Himanshu Willis III MD Encounter Status:Closed by HIMANSHU WILLIS III, MD on 07/27/17 ALLERGIES ALLERGIES DATE TYPE / CODE NAME / CODE REACTION SEVERITY SOURCE 04/04/2018 Drug No Known Unknown [facility] Allergy/416 Allergies/J10709 Hospital [id number](SNOM 0388(RXNORM) Repository ED CT) Drug NO KNOWN [facility] Class/40010 ALLERGIES Main [place] 1003(SNOMED Repository CT) ENCOUNTERS ENCOUNTERS ADMIT/DISCHARGE ACCOUNT ADMITTING ENCOUNTER LOCATION SOURCE NUMBER CLASS 04/04/2018/04/04/20 [id number] Emergency [address] ing:ED Repository 02/21/2018/02/23/20 [id number] Ambulatory [address] Main [place] Repository 02/16/2018/02/25/20 [id number] Ambulatory [address] Main [place] Repository 02/10/2018/02/12/20 [id number] Ambulatory [address] Main [place] Repository 12/06/2017/12/08/19 [id number] Ambulatory [address] Main [place] Repository 11/28/2017/11/29/19 [id number] Emergency [address] ing:ED Repository 09/03/2017/09/07/19 [id number] Ambulatory [address] Main [place] Repository 08/17/2017/08/19/19 [id number] Ambulatory [address] Main [place] Repository 08/02/2017/08/07/19 [id number] Ambulatory [address] Main [place] Repository 07/27/2017/07/29/19 [id number] Ambulatory [address] Main [place] Repository PAYERS PAYERS ENCOUNTER GUARANTOR PAYER SUBSCRIBER SOURCE 04/04/2018 JENNIFER [id number] Primary JENNIFER HANCOCK: Devin CASTILLOVAZQUEZ KNIGHT Insurance:A's Child [id number]Policy Number: [facility] [address]Cwg: (990) [id number] Repository [phone] () Date:2445-12-82JHHRHV [facility] [address] [address], [place] [address]OP: 04/04/2018 Secondary JENNIFER HANCOCK: Devin Insurance:MEDICARE [id number] Community PART A [facility] Number: Repository [id number] Date:2018-04-04 04/04/2018 Tertiary JENNIFER LIPSCOMBOB: [place] Insurance:MEDICAID[place] [id number] Community icy Number: Hospital [id number] Repository Date:2018-04-04 04/04/2018 Tertiary NOT GIVENUNK [place] Insurance:SELF PAY [facility] Number: Effective Repository Date:2018-04-04 11/28/2017 Jennifer Mane [id number] Primary Jennifer LipscombOB: [place] [address] Insurance:MEDICARE [id number] PART A [facility] [id number] [phone] Number: Repository [phone] [facility] [id number] Date:2017-11-28 11/28/2017 Secondary Jennifer LipscombJEFFREY: Devin Insurance:MEDICAIDPol [id number] [id number] Repository Date:2017-11-28 11/28/2017 Tertiary NOT GIVENUNK [place] Insurance:SELF PAY [facility] Number: Effective Repository Date:2017-11-28
== END 2018-04-04 22:24 | disposition home or self-care (01) ==
PROVIDERS: Emergency Provider Emergency Medicine
DX: S80.811A Abrasion, right lower leg, initial encounter (principal); W20.8XXA Other cause of strike by thrown, projected or falling object, initial encounter; Y93.89 Activity, other specified; Y92.481 Parking lot as the place of occurrence of the external cause; Y99.0 Civilian activity done for income or pay; Z23 Encounter for immunization
CPT/HCPCS: 90471; 90715; 99282

== ENCOUNTER → 2018-05-23 12:13 | Outpatient (CLI) | payer OTHER, SELFPAY ==
[2018-05-23 12:07] VITALS: BMI 26.4
--- NOTE | 2018-05-23 12:16 | RAD_ITS ---
STUDY: X-RAY - LEFT KNEE REASON FOR EXAM: Fall. TECHNIQUE: 3 view(s) of the knee. COMPARISON: None. FINDINGS: Normal visualized distal femur. Normal visualized proximal tibia and fibula. Normal proximal tibiofibular articulation. Normal medial femorotibial compartment. Normal lateral femorotibial compartment. Normal patellofemoral articulation. There is mild patellar enthesopathy. RAD/Knee 3 Views IMPRESSION: Mild patellar enthesopathy. No demonstrated fracture. Electronically Signed: Wilson Olguin MD at 13:10 EST Tel , Service support ,
== END ==
PROVIDERS: Referring Provider Physician Assistant; Visit Provider Physician Assistant
DX: S89.92XA Unspecified injury of left lower leg, initial encounter (principal); X58.XXXA Exposure to other specified factors, initial encounter; Y93.9 Activity, unspecified; Y92.9 Unspecified place or not applicable; Y99.9 Unspecified external cause status
CPT/HCPCS: 73562

== ENCOUNTER 2019-02-19 08:03 | Emergency (ER) | payer MEDICARE, MEDICAID, SELFPAY ==
[2018-05-23 12:28] VITALS: BMI 23.8
[2019-02-19 08:04] VITALS: BP 107/72; PULSE 115; RESP 18; TEMP 36.8; O2SAT 97; BMI 27.2
--- NOTE | 2019-02-19 08:17 | ED.VIS.GEN ---
History of Present Illness Chief Complaint: Complaint Informant: Patient Onset: Weeks - almost a week Context: Gradual Onset Timing: Continuous Quality: trouble urinating Current Severity: Severe Maximum Severity: Severe Worsened by: trying to urinate -- penis hurts Relieved by: nothing Associated Symptoms: no hemturia, n/v, back pain, abd pain, fevers Narrative: 43-year-old male who has had trouble urinating for almost a week with multiple progressively worsening to the point where he cannot urinate this morning but he is frequently leaking small amounts of nonbloody urine. He states when he tries to urinate it hurts down there, denies any abdominal pain or pain otherwise but feels like he needs to urinate and cannot. He denies a known history of prostate problems. - Past Medical History (1) Paranoid schizophrenia Status: Chronic (2) History of skin cancer of unknown type Status: Chronic Past Medical History - Allergies and Home Meds Allergies/Adverse Reactions: Allergies No Known Allergies Allergy (Verified 02/19/19 08:05) Primary Care Physician: Care Physician,No Primary [Primary Care Provider] - Lives: Alone Smoking Status: Never smoker Review of Systems General: Denies: Chills, Fever Gastrointestinal: Denies: Abdominal pain, Nausea, Vomiting, Diarrhea Genitourinary: Reports: Dysuria, Frequency, - - urinary incontinence. urinary retention. Denies: Hematuria - urinary incontinence. urinary retention. Skin: Denies: Rash, Wounds Neurological: Denies: Headache, Weakness, Numbness Physical Exam Vital Signs/Narrative: Vital Signs Temp Pulse Resp BP Pulse Ox 02/19/19 08:04 98.3 F 115 H 18 107/72 97 Inital Vital Signs reviewed: Yes General: Well nourished, Well developed, No Acute Distress Head: Normocephalic, Atraumatic Respiratory: No distress Abdomen: Soft, Nontender, Nondistended, Normal bowel sounds Back: Nontender, Normal Inspection. Negative for: CVA tenderness Skin: Normal color, No rash, No Trauma Neurological: Alert, Oriented x3, Cranial nerves II-XII grossly intact, Normal Strength, Normal Sensation, Normal Gait Psychological: Normal affect, Normal Mood Diagnostic/Tx/Re-eval Laboratory Tests 02/19/19 Range/Units 08:35 Urine Color Yellow (Yellow) Urine Clarity Cloudy (Clear) Urine pH 5.0 (5.0 - 8.0) Ur Specific [place] 1.025 (1.002-1.030) Urine Protein 100 H (Negative) mg/dl Urine Glucose (UA) Normal (Normal) mg/dl Urine Ketones 15 H (Negative) mg/dl Urine Occult Blood 250 H (Negative) /ul Urine Nitrite Positive H (Negative) Urine Bilirubin 1 H (Negative) mg/dL Urine Urobilinogen 8 H (Normal) mg/dl Ur Leukocyte Esterase 500 H (Negative) /ul Urine RBC 10-25 SEEN (0-5) /hpf Urine WBC 10-25 SEEN (0-5) /hpf Ur Squamous Epith Cells 0-5 SEEN (0-5) /hpf Urine Bacteria 2+ (None Seen) /hpf Urine Mucus 1+ (<or=2+) /hpf - Medical Decision Making Patient has symptoms of retention, so we placed a Colin catheter after pretreatment with Urojet, however there is very little urine output, it was cloudy and urinalysis is consistent with infection. Therefore the catheter was discontinued, the urine was cultured, and he is started on Bactrim with urology outpatient follow-up. He is well, repeat vital signs show resolution of tachycardia which was likely present initially because he walked up the hill to the triage desk on his own, and he states he walked all the way here from home. He is not septic. ED Disposition - Plan for ED Patient: Disposition: Home or Assisted Living Diagnosis: Acute lower UTI (urinary tract infection) Instructions: Bladder Infection, Male (Adult) Prescriptions: Smz/Tmp Ds [Bactrim Ds] 1 tab PO BID #14 tab Prescription Printed Referrals: Orlando Mccarty MD [STAFF PHYSICIAN] - 5-7 Days
[2019-02-19 08:42] LABS: Color, Urine Yellow (Yellow); Glucose, Dipstick Normal (Normal); Ketone-Dipstick 15 mg/dl (Negative); Leukocyte Esterase-Dipstick 500 /ul (Negative); Nitrite-Dipstick Positive (Negative); Occult Blood-Urine 250 /ul (Negative); Protein-Dipstick 100 mg/dl (Negative); Specific Gravity, Urine 1.025 (1.002-1.030); Urine Clarity Cloudy (Clear); Urine Urobilinogen 8 mg/dl (Normal)
[2019-02-19 08:48] LABS: Urine Bilirubin Dipstick 1 mg/dL (Negative)
[2019-02-19 08:50] LABS: White Blood Cells 10-25 SEEN /hpf (0-5)
[2019-02-19 08:51] LABS: Bacteria 2+ /hpf (None Seen); Mucous, Urine 1+ /hpf (<or=2+); Red Blood Cells-Urine 10-25 SEEN /hpf (0-5); Squamous Epithelial Cells - UA 0-5 SEEN /hpf (0-5)
[2019-02-19] MEDS: Phenazopyridine 95 MG Tablet 190 MG PO (09:18)
[2019-02-19] MEDS: Smz/Tmp Ds Tablet 1 TABLET PO (09:18)
[2019-02-19 09:19] VITALS: RESP 16
== END 2019-02-19 09:32 | disposition home or self-care (01) ==
PROVIDERS: Emergency Provider Emergency Medicine
DX: N39.0 Urinary tract infection, site not specified (principal); R32 Unspecified urinary incontinence; R33.9 Retention of urine, unspecified; F20.0 Paranoid schizophrenia; Z85.828 Personal history of other malignant neoplasm of skin
CPT/HCPCS: 51702; 81001; 87086; 87088; 87186; 99284

== ENCOUNTER 2019-04-20 05:38 | Emergency (ER) | payer MEDICARE, MEDICAID, SELFPAY ==
[2019-04-20 05:39] VITALS: BP 121/74; PULSE 94; RESP 18; TEMP 36.5; O2SAT 90; BMI 20.2
--- NOTE | 2019-04-20 05:41 | RAD_ITS ---
STUDY: X-RAY - LEFT HAND REASON FOR EXAM: Male, 73 years old. s/p fall -- c/o pain lt ring finger and area of lt 4th mcp joint TECHNIQUE: 3 view(s) of the hand. COMPARISON: None. FINDINGS: Degenerative changes. Soft tissue swelling. Negative ulnar variance. Fracture of the proximal fourth phalanx. No radiopaque foreign body. No dislocation. RAD/Hand Min 3 Views IMPRESSION: Fracture the proximal fourth phalanx. Otherwise no acute fracture identified. Electronically Signed: Valentin Adhikari, at 6:58 EST Tel , Service support ,
--- NOTE | 2019-04-20 05:41 | CT_ITS ---
STUDY: CT CERVICAL SPINE WITHOUT CONTRAST REASON FOR EXAM: Male, 73 years old. S/P FALL, LAC TO FOREHEAD, NO LOC RADIATION DOSAGE (If Supplied By Facility): CTDIvol = ( 16.37 ) mGy, DLP = ( 330.20 ) mGycm TECHNIQUE: High resolution transaxial imaging was performed without contrast material. Sagittal and coronal images were reconstructed. Individualized dose optimization techniques were used for this CT. COMPARISON: None FINDINGS: No significant prevertebral soft tissue swelling. Small nodularities left upper lobe. Correlate with nonemergent follow-up CT scan. Multilevel degenerative changes are noted involving the cervical spine. There is facet arthropathy present. There is maintenance of the normal cervical lordosis. There is no acute fracture or subluxation identified of the cervical spine. There is mild wedging of the T1 and T2 vertebral bodies. CT/Spine Cervical without Contras IMPRESSION: There is multilevel degenerative changes of the cervical spine. There is no acute fracture or subluxation of the cervical spine. There is mild wedging of the T1 and T2 vertebral body, no prior studies are available for comparison. No definite acute fracture line identified. There is some adjacent degenerative changes to the C7-T1 region. Findings likely chronic. If there is concern for acute fracture consider MRI to further evaluate. Electronically Signed: Valentin Adhikari, at 7:15 EST Tel , Service support ,
--- NOTE | 2019-04-20 05:41 | CT_ITS ---
STUDY: CT BRAIN WITHOUT CONTRAST REASON FOR EXAM: Male, 73 years old. S/P FALL, LAC TO FOREHEAD, NO LOC RADIATION DOSAGE (If Supplied By Facility): CTDIvol = ( 44.99 ) mGy, DLP = ( 812.98 ) mGycm TECHNIQUE: Transaxial CT imaging of the brain was performed without administration of intravenous contrast material. Individualized dose optimization techniques were used for this CT. COMPARISON: No relevant priors. FINDINGS: Normal soft tissue structures. Normal calvarium. There is mild cerebral atrophy with widening of the extra-axial spaces and ventricular dilatation. There are areas of decreased attenuation within the white matter tracts of the supratentorial brain, consistent with microvascular disease changes. Normal basal ganglia and thalami. Area of low attenuation within the britni likely representing artifact. There is mild cerebellar atrophy. There is no intracranial hemorrhage. There are no findings of an acute ischemic infarction. Normal visualized paranasal sinuses. CT/Brain/Head without Contrast IMPRESSION: There is chronic involutional and white matter changes present. There is low-attenuation noted within the britni likely related to artifact. Otherwise no acute territorial infarct or intracranial hemorrhage is identified. If patient''s symptomology persists or there is continuing clinical concern MRI or follow-up CT scan can be performed. Electronically Signed: Valentin Adhikari, at 7:07 EST Tel , Service support ,
--- NOTE | 2019-04-20 05:42 | ED.DCSUM_ITS ---
History of Present Illness Chief Complaint: Fall Informant: Patient Onset: Today Context: Gradual Onset Timing: Continuous Current Severity: Mild Maximum Severity: Mild Narrative: Patient is a 73-year-old male with history of schizophrenia he is not on anticoagulants presents to the emergency department after mechanical fall with a facial laceration. The patient was in his normal state of health. He states that he was leaning forward, lost his balance, and fell. He struck his forehead against a table. He did not lose consciousness. He states that he did strike his left hand. He is otherwise been in his normal state of health. He denies other injury. Prior similar symptoms: No Recent Illness/Hospitalization: No Past Medical History - Allergies and Home Meds Allergies/Adverse Reactions: Allergies No Known Allergies Allergy (Verified 02/19/19 08:05) Primary Care Physician: Care Physician,No Primary [Primary Care Provider] - Prior records reviewed: Yes Past Medical History: - - Schizophrenia Surgical History: noncontributory Smoking Status: Never smoker Review of Systems General: Denies: Chills, Fever, Sweats Eyes: Denies: Visual changes - bilaterally, Diplopia ENT: Denies: Rhinorrhea, Sore throat Cardiovascular: Denies: Chest pain, Palpitations Respiratory: Denies: Dyspnea, Cough, Dyspnea on exertion Gastrointestinal: Denies: Abdominal pain, Nausea, Vomiting, Diarrhea, Melena, Hematochezia Genitourinary: Denies: Dysuria, Hematuria, Frequency Musculoskeletal: Denies: Back pain, Extremity Pain Skin: Denies: Rash, Wounds Neurological: Denies: Headache, Weakness, Numbness Physical Exam Inital Vital Signs reviewed: Yes General: Well nourished, Well developed, No Acute Distress Head: Normocephalic, Trauma - 0.5 cm laceration to the inside aspect of the left eyebrow. Minimal active bleeding. Midface stable. Eyes: Perrl, EOMI ENT: Moist mucous membranes, No rhinorrhea Neck: Supple, Nontender Cardiovascular: Regular rate, Regular rhythm, No murmurs Respiratory: No distress, CTA bilaterally, Chest nontender Abdomen: Soft, Nontender, Nondistended, Normal bowel sounds Back: Nontender, Normal Inspection Extremities: Nontender, No edema Skin: Normal color, No rash Neurological: Alert, Oriented x3, Cranial nerves II-XII grossly intact, Normal Strength, Normal Sensation Psychological: Normal affect, Normal Mood Diagnostic/Tx/Re-eval Clinical Impression(s) from Imaging Studies Hand X-Ray 04/20/19 05:41 IMPRESSION: Fracture the proximal fourth phalanx. Otherwise no acute fracture identified. Electronically Signed: Valentin Adhikari, at 6:58 EST Tel , Service support , - Medical Decision Making The patient presents with facial injury after mechanical fall. He denies loss of consciousness. His wound was anesthetized with 3 cc of lidocaine with epinephrine 1%. It was copiously irrigated. It was explored and there was no evidence of foreign body or gross contamination. The wound was closed with 3 simple 5-0 interrupted suture with good approximation. The patient tolerated this without issue. Given his age and mechanism, I did obtain CT of the head and C-spine. These were unremarkable for acute process. He was also complaining of some pain in his left hand. X-rays of the hand were obtained. This did show nondisplaced fracture of the fourth proximal phalanges. The p atient was placed in AlumaFoam splint. He will be given outpatient orthopedic follow-up as needed. Impression 1. 1 cm facial laceration status post fall 2. Laceration repair 3. Closed nondisplaced left fourth proximal phalangeal fracture ED Disposition - Plan for ED Patient: Instructions: LACERATION, Face (Suture or Tape), FRACTURE, Finger (Closed) Referrals: Bartolo Sanchez MD [STAFF PHYSICIAN] -
[2019-04-20 06:40] VITALS: RESP 18; O2SAT 91
--- NOTE | 2019-04-20 06:44 | NURSING ---
PT ADVISES THAT HE DID NOT WEAR HIS SHOES. STATES THAT [facility] WILL BE ABLE TO ASSIST HIM W/TRANSPORTATION HOME. OUTREACH #[phone]
--- NOTE | 2019-04-20 07:00 | ED.RN ---
PT DOES NOT KNOW HOME MEDICATIONS.
[2019-04-20 07:24] VITALS: BP 129/64; PULSE 71; RESP 16; O2SAT 98
== END 2019-04-20 09:37 | disposition home or self-care (01) ==
PROVIDERS: Emergency Provider Emergency Medicine
DX: S01.112A Laceration without foreign body of left eyelid and periocular area, initial encounter (principal); S62.645A Nondisplaced fracture of proximal phalanx of left ring finger, initial encounter for closed fracture; W18.39XA Other fall on same level, initial encounter; Y93.89 Activity, other specified; F20.9 Schizophrenia, unspecified
CPT/HCPCS: 12001; 70450; 72125; 73130; 99285